=== PATIENT | female | born 1995 ===

== ENCOUNTER 2017-10-26 17:57 | Outpatient (CLI) | payer OTHER ==
[~2017-10-26] VITALS: Ht 152.4 cm; Wt 54.4 kg
[~2017-10-26 17:57] MED LIST: CIPRO500 MG PO; NABUMETONE500 MG PO; URIN D.S. TABLE1 TAB PO
== END 2017-10-26 18:20 | disposition home or self-care (01) ==
LOC: PPHC 17:57
DX: N39.0 Urinary tract infection, site not specified (principal); R10.2 Pelvic and perineal pain

== ENCOUNTER → 2017-12-19 | Outpatient (CLI) | payer OTHER | END | disposition home or self-care (01) | LOC: PPHC 15:36 | DX: J00 Acute nasopharyngitis [common cold] (principal) ==